=== PATIENT | female | born 1975 | race Caucasian/White ===

== ENCOUNTER 2020-10-28 05:42 | Emergency (ER) | payer OTHER ==
[~2020-10-28] VITALS: Ht 162.6 cm; Wt 98.5 kg
--- NOTE | 2020-10-28 05:54 | NUR ---
PT HAS HX OF HERNIA AND MOVED BOXES YESTERDAY. PT NOW HAS C/O ABD PAIN AT HERNIA SITE WITH N/V
[2020-10-28] MEDS ORDERED: KETOROLAC 30 MG/1 ML ONE (06:07)
[2020-10-28] MEDS ORDERED: ONDANSETRON 2MG/ML, 2ML ONE (06:07)
[2020-10-28] MEDS ORDERED: MORPHINE SULFATE 4 MG/ML, 1ML ONE (06:08)
--- NOTE | 2020-10-28 06:14 | NUR ---
pt to x ray at this time
[2020-10-28] MEDS ORDERED: KETOROLAC 30 MG/1 ML IVPush ONE (06:30)
[2020-10-28] MEDS ORDERED: ONDANSETRON 2MG/ML, 2ML IVPush ONE (06:30)
[2020-10-28] MEDS ORDERED: MORPHINE SULFATE 4 MG/ML, 1ML IVPush PRN (06:30)
[2020-10-28 06:41] LABS: BASOPHILS % (AUTO) 1 % (0-1); EOSINOPHILS % (AUTO) 1 % (1-7); LYMPHOCYTES % (AUTO) 24 % (22-44); MEAN CORPUSCULAR HEMOGLOBIN 30.3 pg (27.0-34.8); MEAN CORPUSCULAR HGB CONC 33.5 g/dL (32.4-35.8); MONOCYTES % (AUTO) 8 % (2-9); NEUTROPHILS % (AUTO) 66 % (42-75); PLATELET COUNT 314 x10^3/uL (130-400); RED BLOOD COUNT 4.68 x10^6/uL (3.82-5.3)
[2020-10-28 06:42] LABS: MD NO
[2020-10-28 06:52] LABS: ALBUMIN 3.5 g/dL (3.4-5.0); ANION GAP 5 mmol/L (5-15); CALCIUM 8.4 mg/dL (8.5-10.1); CHLORIDE 108 mmol/L (98-107)
--- NOTE | 2020-10-28 06:54 | NUR ---
REPORT RECEIVED FROM NADIA LYNN
[2020-10-28 06:56] LABS: ALANINE AMINOTRANSFERASE 19 U/L (12-78); ALKALINE PHOSPHATASE 74 U/L (45-117); BILIRUBIN,TOTAL 0.4 mg/dL (0.2-1.0); CREATININE 0.88 mg/dL (0.55-1.02); TOTAL PROTEIN 7.1 g/dL (6.4-8.2)
[2020-10-28 07:29] VITALS: BP 121/69
== END 2020-10-28 07:31 | disposition home or self-care (01) ==
LOC: ED 06:29
DX: K43.9 Ventral hernia without obstruction or gangrene (principal)
CPT/HCPCS: 36415; 74021; 80053; 83690; 85025; 96374; 96375; 99284; J1885; J2270; J2405

== ENCOUNTER 2020-10-30 06:39 | Emergency (ER) | payer OTHER ==
[~2020-10-30] VITALS: Ht 160 cm; Wt 97.1 kg
[2020-10-30] MEDS ORDERED: MORPHINE SULFATE 4 MG/ML, 1ML IVPush PRN (07:00)
[2020-10-30] MEDS ORDERED: SODIUM CHLORIDE FLUSH 10ML SYR IVF ONE (07:00)
[2020-10-30] MEDS ORDERED: ONDANSETRON 2MG/ML, 2ML IVPush ONE (07:00)
[2020-10-30] MEDS ORDERED: MORPHINE SULFATE 4 MG/ML, 1ML ONE (07:12)
[2020-10-30] MEDS ORDERED: ONDANSETRON 2MG/ML, 2ML ONE (07:12)
--- NOTE | 2020-10-30 07:14 | NUR ---
PATIENT WHEELED BACK FROM TRIAGE WITH CHIEF C/O HERNIA. PATIENT SEEN WEDNESDAY FOR THE SAME, WAS GETTING BETTER BUT THIS MORNING PAIN WAS MUCH WORSE. PATIENT REPORTS WEIGHT LOSS OF 15 LBS IN THE LAST 2 WEEKS, AND REPORTS A BURNING SENSATION IN HER ABD. PAULN, VSS, CALL LIGHT WITHIN REACH.
--- NOTE | 2020-10-30 07:29 | NUR ---
20 GAUGE IV STARTED RIGHT AC, BLOOD COLLECTED AND SENT TO LAB, PATIENT MEDICATED PER eMAR.
[2020-10-30 07:37] LABS: BASOPHILS % (AUTO) 1 % (0-1); EOSINOPHILS % (AUTO) 1 % (1-7); LYMPHOCYTES % (AUTO) 23 % (22-44); MEAN CORPUSCULAR HEMOGLOBIN 30.6 pg (27.0-34.8); MEAN CORPUSCULAR HGB CONC 33.8 g/dL (32.4-35.8); MEAN PLATELET VOLUME 7.2 fL (7.4-10.4); MONOCYTES % (AUTO) 8 % (2-9); NEUTROPHILS % (AUTO) 67 % (42-75); PLATELET COUNT 325 x10^3/uL (130-400); RED BLOOD COUNT 4.88 x10^6/uL (3.82-5.3); RED CELL DISTRIBUTION WIDTH 13.6 % (9.6-15.2)
[2020-10-30 07:46] LABS: MD NO
[2020-10-30 07:48] LABS: ALBUMIN 3.7 g/dL (3.4-5.0); ANION GAP 6 mmol/L (5-15); CALCIUM 9.1 mg/dL (8.5-10.1); CHLORIDE 108 mmol/L (98-107)
[2020-10-30 07:51] LABS: ALANINE AMINOTRANSFERASE 35 U/L (12-78); ALKALINE PHOSPHATASE 81 U/L (45-117); BILIRUBIN,TOTAL 0.4 mg/dL (0.2-1.0); CREATININE 0.96 mg/dL (0.55-1.02); TOTAL PROTEIN 7.6 g/dL (6.4-8.2)
[2020-10-30] MEDS ORDERED: OMNIPAQUE 350 MG/ML, 100ML BOTTLE ONE (08:11)
--- NOTE | 2020-10-30 09:14 | NUR ---
dr elizabeth spoke with dr almaguer
[2020-10-30 09:35] VITALS: BP 125/76
--- NOTE | 2020-10-30 09:46 | NUR ---
IV removed with tip intact. Patient given discharge instructions and work note and they have confirmed that they understand the instructions. Patient stable and ambulatory with steady gait from ED to private vehicle.
== END 2020-10-30 09:46 | disposition home or self-care (01) ==
LOC: ED 06:58
DX: K43.9 Ventral hernia without obstruction or gangrene (principal); R10.33 Periumbilical pain; R11.2 Nausea with vomiting, unspecified; Z86.39 Personal history of other endocrine, nutritional and metabolic disease; Z90.89 Acquired absence of other organs
CPT/HCPCS: 36415; 74177; 80053; 83690; 85025; 96374; 96375; 99285; J2270; J2405; Q9967

== ENCOUNTER 2020-11-12 10:17 | Day surgery (SDC) | payer OTHER ==
[~2020-11-12] VITALS: Ht 160 cm; Wt 95.1 kg
[~2020-11-12 10:17] MED LIST: ESCI10TA97 PO; LEVO150T5 PO; cyclobenzaprine PO; hydrocodone PO
[2020-11-12 10:45] VITALS: BP 124/89
[2020-11-12] MEDS ORDERED: LACTATED RINGERS 1,000 ML IV SCH (11:00)
[2020-11-12] MEDS ORDERED: CHLORHEXIDINE 15 ML UDC PO ONE (11:00)
[2020-11-12] MEDS ORDERED: BUPIVACAINE/PF 0.5% ONE (11:51)
[2020-11-12] MEDS ORDERED: EPINEPHRINE 1 MG/ML, 1ML ONE (11:51)
[2020-11-12] MEDS ORDERED: FENTANYL PF 250 MCG/5ML ONE ×2 (12:23→14:38)
[2020-11-12] MEDS ORDERED: MIDAZOLAM 1 MG/ML, 2ML ONE (12:23)
[2020-11-12] MEDS ORDERED: hydrALAzine 20 MG/ML, 1ML IV PRN (13:00)
[2020-11-12] MEDS ORDERED: FENTANYL PF 100 MCG/2ML IV PRN (13:00)
[2020-11-12] MEDS ORDERED: HYDROmorphone 1 MG/ML, 1ML INJ IVPush PRN (13:00)
[2020-11-12] MEDS ORDERED: MEPERIDINE/PF 25MG/0.5ML IVPush PRN (13:00)
[2020-11-12] MEDS ORDERED: ACETAMINOPHEN 325 MG TABLET PO PRN (13:00)
[2020-11-12] MEDS ORDERED: morphine SULFATE 10 MG/ML, 1ML IVPush PRN ×2 (13:00→15:30)
[2020-11-12] MEDS ORDERED: OXYcodone 5 MG/5 ML ORAL.SOL UDC PO PRN (13:00)
[2020-11-12] MEDS ORDERED: LABETALOL 5MG/ML, 20ML IV PRN (13:00)
[2020-11-12] MEDS ORDERED: HALOPERIDOL 5 MG/ML IV PRN (13:00)
[2020-11-12] MEDS ORDERED: PROMETHAZINE 25 MG/ML, 1ML IVPush PRN (13:00)
[2020-11-12] MEDS ORDERED: BUPIVACAINE/PF-EPI 0.5% 1:200K INFIL ONE (13:08)
[2020-11-12] MEDS ORDERED: GLYCOPYRROLATE 0.2MG/1ML, 5ML ONE (13:19)
[2020-11-12] MEDS ORDERED: ROCURONIUM 10MG/ML,5ML ONE (13:19)
[2020-11-12] MEDS ORDERED: NEOSTIGMINE 1 MG/ML, 10ML ONE (13:19)
[2020-11-12] MEDS ORDERED: BUPIVACAINE/PF 0.25% ONE ×2 (13:19)
[2020-11-12] MEDS ORDERED: PROPOFOL 10 MG/ML, 20ML ONE (13:19)
[2020-11-12] MEDS ORDERED: CEFAZOLIN 1,000 MG ONE (13:19)
[2020-11-12] MEDS ORDERED: DEXAMETHASONE 4 MG/ML, 1ML ONE (13:19)
[2020-11-12] MEDS ORDERED: ONDANSETRON 2MG/ML, 2ML ONE (13:19)
[2020-11-12] MEDS ORDERED: KETOROLAC 30 MG/1 ML ONE (13:29)
[2020-11-12] MEDS ORDERED: FENTANYL PF 100 MCG/2ML ONE ×3 (14:38→15:34)
[2020-11-12] MEDS ORDERED: ONDA4TAB7 PO (15:08)
[2020-11-12] MEDS ORDERED: HYDR-2214 PO (15:08)
[2020-11-12] MEDS ORDERED: SUGAMMADEX 200 MG/2 ML IVPush ONE (15:09)
[2020-11-12] MEDS ORDERED: HYDROcodone/APAP 5/325 TABLET PO PRN (15:30)
[2020-11-12] MEDS ORDERED: ENOXAPARIN 40 MG/0.4 ML SQ SCH (15:30)
[2020-11-12] MEDS ORDERED: ONDANSETRON 2MG/ML, 2ML IVPush PRN (15:30)
[2020-11-12] MEDS ORDERED: KETOROLAC 30 MG/1 ML IVPush PRN (15:30)
[2020-11-12] MEDS ORDERED: OXYcodone 5 MG/5 ML ORAL.SOL UDC ONE (15:35)
[2020-11-12] MEDS ORDERED: ACETAMINOPHEN 650 MG/20.3 ML UDC ONE (15:35)
== END 2020-11-12 17:40 | disposition home or self-care (01) ==
LOC: OUT 10:17
PROVIDERS: ATTEND Surgery
DX: K43.6 Other and unspecified ventral hernia with obstruction, without gangrene (principal); K40.30 Unilateral inguinal hernia, with obstruction, without gangrene, not specified as recurrent; K43.0 Incisional hernia with obstruction, without gangrene; E03.9 Hypothyroidism, unspecified; E66.9 Obesity, unspecified; Z68.35 Body mass index [BMI] 35.0-35.9, adult; Z79.890 Hormone replacement therapy; Z79.899 Other long term (current) drug therapy
CPT/HCPCS: 49650; 49653; 49655; 64488; C1781; J0171; J0690; J1100; J1885; J2250; J2405; J2704; J2710; J3010; J7120; S2900